=== PATIENT | female | born 1990 | race African-American/Black ===

== ENCOUNTER 2020-11-26 21:57 | Emergency (ER) | payer OTHER ==
[~2020-11-26] VITALS: Ht 160 cm; Wt 85.3 kg
[~2020-11-26 21:57] MED LIST: CLOTRIMAZOLE; MOXIFLOXACIN H400 MG; ZYRTEC10 MG PO
[2020-11-27] MEDS ORDERED: NAPROXEN375 MG PO (02:27)
[2020-11-27] MEDS ORDERED: PEPCID AC20 MG PO (02:27)
== END 2020-11-27 02:51 | disposition home or self-care (01) ==
LOC: ER 21:57
DX: R10.31 Right lower quadrant pain (principal)